=== PATIENT | female | born 1955 | race Caucasian/White ===

== ENCOUNTER 2017-05-22 03:25 | Inpatient (IN) | payer OTHER ==
[~2017-05-22] VITALS: Ht 162.6 cm; Wt 72.1 kg
[2017-05-22] VITALS (29 sets, daily range): BP systolic 79–140; BP diastolic 43–72
[2017-05-22] MEDS ORDERED: NTG 50 MG/D5W250 ML BOTTL 250 ML IV ONE ×2 (03:30→04:00)
[2017-05-22] MEDS ORDERED: NITROGLYCERIN 0.4 MG/TAB BOTTLE ONE (03:30)
--- NOTE | 2017-05-22 03:35 | NUR ---
PT A/OX4 PT C/O SOB AND DIFFICULTY BREATHING X 1 DAY, PT WAS PLACED ON CPAP REPROGRAPHICS ASSOCIATE BY EMS AND PT WAS TAKEN OFF CPAP AND PUT ON BIPAP BY RT PER MD JUAN ORDER, IV PLACED REPROGRAPHICS ASSOCIATE AND A 2ND LINE PLACED IN ED, LABS DRAWN, PT ON MONITOR, EKG DONE, MD AT BEDSIDE WILL CONTINUE TO MONITOR.
--- NOTE | 2017-05-22 03:35 | NUR ---
CALLED PRINTING SCREEN ASSEMBLER FOR ICU BED
[2017-05-22] MEDS ORDERED: NITROGLYCERIN 0.4 MG/TAB BOTTLE SL ONE (04:00)
[2017-05-22] MEDS ORDERED: ASPIRIN 325 MG TABLET PO ONE (04:00)
[2017-05-22] MEDS ORDERED: FUROSEMIDE 40 MG/4 ML VIAL IV ONE (04:00)
[2017-05-22 04:07] LABS: BASOPHILS % (AUTO) 0.2 % (0.0-2.0); EOSINOPHILS # (AUTO) 0.2 /CMM (0.0-0.7); EOSINOPHILS % (AUTO) 1.2 % (0.0-6.0); HEMATOCRIT 38 % (33-45); HEMOGLOBIN 12.2 g/dL (11.5-14.8); LYMPHOCYTES # (AUTO) 1.7 /CMM (0.8-4.8); LYMPHOCYTES % (AUTO) 9.4 % (20.0-44.0); MEAN CORPUSCULAR HEMOGLOBIN 32 PG (26.0-33.0); MEAN CORPUSCULAR HGB CONC 32 g/dl (31.0-36.0); MEAN CORPUSCULAR VOLUME 99 fL (82-100); MONOCYTES # (AUTO) 0.4 /CMM (0.1-1.30); MONOCYTES % (AUTO) 2.3 % (2.0-12.0); NEUTROPHILS # (AUTO) 15.4 /CMM (1.8-8.9); NEUTROPHILS % (AUTO) 86.9 % (43.0-81.0); PLATELET COUNT (AUTO) 508 /CMM (150-450); RDW COEFFICIENT OF VARIATION 16.7 (11.5-15.0); RED BLOOD CELL COUNT(AUTO) 3.88 MIL/uL (4.0-5.2); WHITE BLOOD COUNT (AUTO) 17.7 K/uL (4.3-11.0)
[2017-05-22] MEDS ORDERED: ALBUTEROL FS 2.5 MG/0.5 ML VIAL.NEB ONE ×2 (04:14→06:12)
[2017-05-22] MEDS ORDERED: IPRATROPIUM NEB FS 0.5 MG/2.5 ML AMPUL.NEB ONE (04:14)
[2017-05-22] MEDS ORDERED: DEXAMETHASONE SOD PHOSPHATE 4 MG/ML VIAL ONE (04:20)
[2017-05-22 04:21] LABS: CALCIUM, SERUM 9.7 mg/dL (8.5-10.1); CREATININE 5.7 mg/dL (0.6-1.3); POTASSIUM 3.6 mmol/L (3.5-5.1)
[2017-05-22] MEDS ORDERED: ASPIRIN EC 81 MG TABLET.DR PO ONE (04:21)
[2017-05-22] MEDS ORDERED: FUROSEMIDE 40 MG/4 ML VIAL ONE (04:21)
[2017-05-22 04:23] LABS: INR 0.99 (0.87-1.13); PROTHROMBIN TIME 10.3 SECS (9.5-12.7)
[2017-05-22 04:29] LABS: TROPONIN I 0.032 ng/mL (0.00-0.056)
[2017-05-22] MEDS ORDERED: DEXAMETHASONE SOD PHOSPHATE 4 MG/ML VIAL IV ONE (04:30)
[2017-05-22] MEDS ORDERED: CLOPIDOGREL BISULFATE 75 MG TABLET PO ONE (04:30)
[2017-05-22] MEDS ORDERED: IPRATROPIUM NEB FS 0.5 MG/2.5 ML AMPUL.NEB NEB ONE (04:30)
[2017-05-22] MEDS ORDERED: ALBUTEROL FS 2.5 MG/3 ML VIAL.NEB CONTNEB ONE (04:30)
--- NOTE | 2017-05-22 04:30 | NUR ---
PT STATES SHE IS BREATHING BETTER THAN BEFORE AND FEELS BETTER THAN BEFORE, MD MADE AWARE WILL CONTINUE TO MONITOR.
[2017-05-22 04:33] LABS: ALBUMIN 2.3 g/dL (3.4-5.0); BILIRUBIN,DIRECT 0.1 mg/dL (0.0-0.2); BILIRUBIN,TOTAL 0.6 mg/dL (0.2-1.0)
--- NOTE | 2017-05-22 05:14 | NUR ---
ICU 252
[2017-05-22] MEDS ORDERED: BUMETANIDE INJ 4 MG in IV D5W 34 ML IV ONE (05:30)
[2017-05-22] MEDS ORDERED: ALBUTEROL FS 2.5 MG/0.5 ML VIAL.NEB NEB ONE (05:30)
[2017-05-22] MEDS ORDERED: NITROGLYCERIN 0.4 MG/TAB BOTTLE SL PRN (05:30)
[2017-05-22] MEDS ORDERED: Magnesium 1 GM/2 ML VIAL IV ONE (05:30)
[2017-05-22] MEDS ORDERED: DOPamine 400 MG in IV D5W 250 ML IV PRN ×2 (05:30→11:30)
[2017-05-22] MEDS ORDERED: CEFTRIAXONE 1 G in IV D5W 50 ML IV SCH (05:30)
[2017-05-22] MEDS ORDERED: Magnesium 1GM/D5W 100ML PREMIX 200 ML IV ONE (05:36)
[2017-05-22] MEDS ORDERED: CLOPIDOGREL BISULFATE 75 MG TABLET ONE (05:37)
--- NOTE | 2017-05-22 05:50 | NUR ---
REGISTERED NURSE CARDIAC TELEMETRY INITIAL NOTE RECEIVED REPORT FROM DONI SEWELL. PT BEING ADMITTED TO ICU FOR CHF, CAME IN WITH A COMPLAINT OF SOB. ON BIPAP, SETTINGS 20/5 RATE 20 FIO2 60%. PT IS TOLERATING BIPAP WELL. LEFT CHEST WALL PLEURA-X DRESSED. RLQ PERITONEAL DIALYSIS DRAIN PATENT. IV PATENT AND INTACT. PULSES PRESENT. BED IN LOW LOCKED POSITION. CALL LIGHT WITHIN REACH. WILL CONTINUE MONITOR. CALL LIGHT WITHIN REACH.
[2017-05-22 06:07] LABS: IRON, SERUM 95 ug/dl (50-175); TOTAL IRON BINDING CAPACITY 213 ug/dl (250-450)
[2017-05-22] MEDS ORDERED: BUMETANIDE INJ 0.25 MG/ML VIAL ONE ×2 (06:15)
[2017-05-22] MEDS ORDERED: CEFTRIAXONE 1 G VIAL ONE (06:16)
--- NOTE | 2017-05-22 06:30 | NUR ---
MARKETING ANALYTICS ANALYST RECEIVED A CALL FROM [facility] REGARDNG PT AND THE POSSIBILITY OF SEVERE SEPSIS. THEY REQUESTED A LACTIC ACID AND SUPPORTING DOCUMENTATION REGARDING PT CONDITION. WILL ENDORSE THIS TO DR POTTER.
--- NOTE | 2017-05-22 06:40 | NUR ---
STOCK TRADER SPOKE WITH DR POTTER. DR POTTER AWARE OF [facility] REQUEST.
--- NOTE | 2017-05-22 07:00 | NUR ---
COLLET MAKER JAIN CATH INSERTED USING STERILE TECHNIQUE. LEFT CHEST WALL PLEUA-X DRAINED WITH AN OUTPUT OF 30CC AND ALOT OF FOAM. PT SAYS SHE FELT BETTER, PLEURA-X REMOVED AND SITE WAS CLEANED AND COVERED.
--- NOTE | 2017-05-22 07:00 | NUR ---
icu initial note received report from kevon, pt was received a/o x4, able to make needs known, pt is able to follow commands, able to move all extremities, pt is on bipap 20/5 r 20 fio2 60%, sating well, no s/s of resp.distress or sob noted at this time, pt is on bedside monitor showing st, 100's, no c/o of chest pain or discomfort at this time, pt has f/c draining yellow urine to gravity, l plurex chest tube intact/patent, dressing c/d/i, pt has right lower quadrant perineal hd catheter, pt has rac #18g, running bumex @ 1mg/hr, l hand #20g, sl, c/d/i/patent, flushing well, no s/s of infection/ infiltration noted at this time, at bedside, all safety measures in place at all times, call light within easy reach, will monitor pt closely for changes.
[2017-05-22 07:12] LABS: ABG BASE EXCESS -1.5 mmol/L; ABG OXYGEN SATURATION 91.2 % (92.0-98.5); ABG PCO2 42.8 mmHg (35.0-45.0); ABG PH 7.365 (7.350-7.450); ABG PO2 63.8 mmHg (75.0-100.0); COHb 0.2 % (0.5-1.5); MetHb 0.9 % (0.0-1.5); O2Hb 90.2 % (94.0-97.0); PEEP,BG 5 cm H2O; VENT MODE, BG BIPAP 20/5 RR20
--- NOTE | 2017-05-22 07:30 | NUR ---
MAINTENANCE MECHANIC HELPER ENDORSE REPORT TO JASMYNE FOR JOSY.
--- NOTE | 2017-05-22 07:53 | NUR ---
RT NOTE PT IN STABLE CONDITION. PT ON BIPAP ON SETTINGS PRESCRIBED ST 20/5 RR 20 60%. ALARMS SET PER PROTOCOL AND AUDIBLE. BIPAP PLUGGED IN TO RED OUTLET. AMBU BAG AT BED SIDE. PT AWAKE AND ALERT. NO DISTRESS NOTED. WILL CONTINUE TO MONITOR. Addendum: 05/22/17 at 0755 by JAYCE VICTORIA RT Amended: Links added.
--- NOTE | 2017-05-22 08:10 | NUR ---
icu note brought in home medications, med recon nurse notified, medication picked up and documented, md aware
[2017-05-22 08:30] LABS: ABG BASE EXCESS -3.6 mmol/L; ABG OXYGEN SATURATION 98.6 % (92.0-98.5); ABG PH 7.375 (7.350-7.450); ABG PO2 358.8 mmHg (75.0-100.0); AaDO2 28.3 mmHg; MetHb 0.3 % (0.0-1.5); O2Hb 98.3 % (94.0-97.0); PEEP,BG 5 cm H2O; SITE, ABG Right Radial
[2017-05-22 08:31] LABS: VENT MODE, BG ST 20/5 60% RR20
[2017-05-22] MEDS ORDERED: FERR-58 PO (08:36)
[2017-05-22] MEDS ORDERED: CHOL200026 PO (08:36)
[2017-05-22] MEDS ORDERED: VITA1TAB28 PO (08:36)
[2017-05-22] MEDS ORDERED: TORS20TA3 PO (08:36)
[2017-05-22] MEDS ORDERED: MONT10TA22 PO (08:36)
[2017-05-22] MEDS ORDERED: ROSU5TAB PO (08:36)
[2017-05-22] MEDS ORDERED: ALLO100T PO (08:36)
[2017-05-22] MEDS ORDERED: CARV3.12 PO (08:36)
--- NOTE | 2017-05-22 08:40 | NUR ---
RT NOTE PT TAKEN OFF BIPAP. PT PLACED ON NC AT 2L. PT AWAKE AND ALERT. NO DISTRESS NOTED. CLEAR BREATH SOUNDS HEARD UPON AUSCULTATION. BILATERAL CHEST RISE NOTED. SATURATION 98% HR 86. NO DISTRESS NOTED. WILL CONTINUE TO MONITOR. Addendum: 05/22/17 at 0843 by JAYCE VICTORIA RT Amended: Links added.
--- NOTE | 2017-05-22 08:43 | NUR ---
ICU NOTE AT BEDSIDE, ANSWERING ALL QUESTIONS, AWARE OF ALL LABS AND RESULTS
--- NOTE | 2017-05-22 08:43 | NUR ---
ICU NOTE PT REQUESTED TO BE OFF BIPAP, RT AWARE, PT WAS TAKEN OFF BIPAP, PLACED ON 2L NC, SATING WELL, NOTIFIED PT THAT IF SHE FEELS SOB WILL PLACE BACK ON BIPAP, PT VERBALIZED UNDERSTANDING
[2017-05-22] MEDS: HEPARIN SODIUM, PORCINE 5000 UNITS/1 ML VIAL SQ SCH ×3 (09:00→16:33)
--- NOTE | 2017-05-22 09:21 | NUR ---
ICU NOTE PT REFUSED HEPARIN, EDUCATED PT AND OF THE RISKS AND BENEFITS, PT STILL REFUSED.
[2017-05-22 11:58] LABS: ABG BASE EXCESS -4.6 mmol/L; ABG OXYGEN SATURATION 96.1 % (92.0-98.5); ABG PH 7.391 (7.350-7.450); ABG PO2 93.1 mmHg (75.0-100.0); AaDO2 38.8 mmHg; COHb 0.5 % (0.5-1.5); MetHb 0.3 % (0.0-1.5); O2Hb 95.3 % (94.0-97.0); SITE, ABG Right Radial; VENT MODE, BG Nasal Cannula
[2017-05-22] MEDS: ALBUTEROL FS 2.5 MG/3 ML VIAL.NEB NEB SCH ×2 (11:59→16:23)
[2017-05-22] MEDS: IPRATROPIUM NEB FS 0.5 MG/2.5 ML AMPUL.NEB NEB SCH ×2 (11:59→16:23)
[2017-05-22] MEDS ORDERED: CHOLECALCIFEROL 1,000 UNIT TABLET (VIT D3) PO SCH (12:00)
--- NOTE | 2017-05-22 12:14 | NUR ---
icu note pt receiving perineal hd at this time Addendum: 05/22/17 at 1216 by JASMYNE ROBERSON RN *peritoneal dialysis
[2017-05-22] MEDS ORDERED: ACETAMINOPHEN 325 MG TABLET PO PRN (13:00)
--- NOTE | 2017-05-22 13:00 | NUR ---
icu note peritoneal fluid sample taken and sent to lab
--- NOTE | 2017-05-22 14:18 | NUR ---
icu note [facility] patient case manager rodríguez called to get information on the pt, will call back regarding transfer
--- NOTE | 2017-05-22 16:15 | NUR ---
icu note called [facility] for report, report given to damir krause for farideh.
[2017-05-22] MEDS ORDERED: TORSEMIDE 20 MG TABLET PO SCH (17:00)
--- NOTE | 2017-05-22 17:38 | NUR ---
icu note rx picked up from pharmacy given to , all discharge paperwork, belongings signed and with pt. all questions and concerns answered. f/c and iv will remain in place per ferreira.
--- NOTE | 2017-05-22 17:43 | NUR ---
icu note phd 3.2 l removed Addendum: 05/22/17 at 1747 by JASMYNE ROBERSON RN correction: 1.2l ellen
[2017-05-22] MEDS ORDERED: MONTELUKAST SODIUM (10MG) 10 MG TABLET PO SCH (18:00)
--- NOTE | 2017-05-22 18:11 | NUR ---
icu note report given to lyndsay arevalo, emt
--- NOTE | 2017-05-22 18:14 | NUR ---
icu note pt d/c, left via emt with , all instructions carried out, report given to rn and emt, all lines remained in place per ferreira, all paperwork and rx with , pt skin intact, no photos required, all belongings with pt
[2017-05-23] MEDS ORDERED: ALLOPURINOL 100 MG TABLET PO SCH (09:00)
[2017-05-23] MEDS ORDERED: VITAMIN B COMP W-C 1 TAB TABLET PO SCH (09:00)
[2017-05-23] MEDS ORDERED: CARVEDILOL 3.125 MG TABLET PO SCH (09:00)
[2017-05-23] MEDS ORDERED: FERROUS SULFATE (325 MG) 325 MG/TAB TABLET PO SCH (09:00)
== END 2017-05-22 18:40 | disposition short-term general hospital (02) | DRG 871 ==
LOC: ER 03:26 → ICU 05:18
PROVIDERS: ADMIT Internal Medicine; ATTEND Internal Medicine
PROC: 5A09357 Assistance with Respiratory Ventilation, Less than 24 Consecutive Hours, Continuous Positive Airway Pressure (ICD-10-PCS; principal; 2017-05-22)
PROC: 3E1M39Z Irrigation of Peritoneal Cavity using Dialysate, Percutaneous Approach (ICD-10-PCS; 2017-05-22)
DX: A41.9 Sepsis, unspecified organism (principal); R53.2 Functional quadriplegia; J96.01 Acute respiratory failure with hypoxia; I13.2 Hypertensive heart and chronic kidney disease with heart failure and with stage 5 chronic kidney disease, or end stage renal disease; E87.2 Acidosis; D68.59 Other primary thrombophilia; E44.0 Moderate protein-calorie malnutrition; N18.6 End stage renal disease; E83.9 Disorder of mineral metabolism, unspecified; I50.33 Acute on chronic diastolic (congestive) heart failure; J44.1 Chronic obstructive pulmonary disease with (acute) exacerbation; N39.0 Urinary tract infection, site not specified; Z95.1 Presence of aortocoronary bypass graft; D63.8 Anemia in other chronic diseases classified elsewhere; D72.829 Elevated white blood cell count, unspecified; E66.9 Obesity, unspecified; E78.5 Hyperlipidemia, unspecified; Z99.2 Dependence on renal dialysis; D47.3 Essential (hemorrhagic) thrombocythemia; Z85.118 Personal history of other malignant neoplasm of bronchus and lung; Z90.2 Acquired absence of lung [part of]; Z88.2 Allergy status to sulfonamides; J06.9 Acute upper respiratory infection, unspecified; Z88.6 Allergy status to analgesic agent; B96.89 Other specified bacterial agents as the cause of diseases classified elsewhere
CPT/HCPCS: 36415; 36600; 71010-TC; 80048-TC; 80076-TC; 82803-TC; 83540-TC; 83605-TC; 83880; 84484-TC; 85025-TC; 85730-TC; 87040-TC; 87070-TC; 87081-TC; 89051-TC; 93307-TC; 99082-TC; A4606; A6402; J0696; J1100; J1265; J1940; J3475; J3490; J7050; J7060; Z7610